=== PATIENT | female | born 1985 | race Two or more races ===

== ENCOUNTER 2024-02-14 22:02 | Observation (INO) | payer MEDICAID, SELFPAY ==
[2024-02-14 22:09] VITALS: BMI 35.3
[2024-02-14 22:23] VITALS: BP 111/63; PULSE 78; RESP 19; TEMP 36.6; O2SAT 95
--- NOTE | 2024-02-14 22:42 | XR_ITS ---
Examination: Complete OB ultrasound greater than 14 weeks Date and time of exam: February 14, 2024 at 11:51 PM Indications: Vaginal pressure and vaginal bleeding today Findings: Viable intrauterine single fetus with single amniotic sac presentation cephalic Cardiac motion 160 BPM Placenta posterior grade 1 Umbilical cord insertion seen Amniotic fluid index 7.9 cm spine maternal left Cervix 5.5 cm Ovaries obscured by the uterus. Composite estimated gestational age based on BPD, head circumference, abdominal circumference, femur length is 32 weeks 5 days Estimated weight 2017.9 g. Survey of intracranial anatomy, spinal anatomy, abdominal anatomy, four-chamber heart performed with no abnormalities identified. Impression: Viable intrauterine gestation cephalic presentation.
[2024-02-14 22:45] VITALS: BP 109/64; PULSE 80
[2024-02-14 23:00] VITALS: BP 107/66; PULSE 80
[2024-02-14 23:15] VITALS: BP 109/63; PULSE 78
[2024-02-14 23:30] VITALS: BP 101/60; PULSE 73
[2024-02-14 23:45] VITALS: BP 101/64
--- NOTE | 2024-02-15 01:20 | PRELIM_ITS ---
Obstetric ultrasound. February 14, 2024 2351 hours Clinical history: Bleeding and pressure Comparison : No prior study is available for comparison. Findings:There is a gravid uterus with a live fetus in cephalic presentation of mean gestational age 32 weeks and 5 days (by biometry). cardiac activity is present at a heart rate of 160 beats per minute. The placenta is posterior in location. T here is no evidence of placenta previa or retroplacental hemorrhage. Amniotic fluid is adequate (VIVI = 10.9 cm). Estimated weight is 2017.9 grams+/- 299 grams. Estimated due date by ultrasound is 04/05/2024. The cervical length measures 5.5 cm.The ovaries are not visualized/demonstrated due to la rge uterus on this examination. Impression:Gravid uterus with a single live fetus in cephalic present ation of mean gestational age 32 weeks 5 days.Other findings as described above. Report Electronicall y Signed By: Trent Hernadez 02/15/2024 1:20:11 AM [EST]
== END 2024-02-15 01:44 | disposition home or self-care (01) ==
PROVIDERS: Admitting Provider Student in an Organized Health Care Education/Training Program; PCP Student in an Organized Health Care Education/Training Program; Visit Provider Student in an Organized Health Care Education/Training Program
DX: O26.853 Spotting complicating pregnancy, third trimester (principal); O26.893 Other specified pregnancy related conditions, third trimester; R10.2 Pelvic and perineal pain; Z3A.30 30 weeks gestation of pregnancy
CPT/HCPCS: 59025; 59899; 76805; G0378

== ENCOUNTER 2024-02-25 01:09 | Observation (INO) | payer MEDICAID, SELFPAY ==
[2024-02-25 01:19] VITALS: BMI 35.5
--- NOTE | 2024-02-25 01:28 | PC.NURSE ---
Addendum entered by Muna Medeiros RN 02/25/24 02:26: No SVE ordered by Dr. Esposito. 02:20-NST reactive and frequent positive movement noted by pt. Pt. given discharge instructions and ordered to keep up with follow up appointment on 03/01/2024 with OB provider in [place]. Pt. further instructed to observe kick counts and to return to L&D if pt. notes decreased FM, vaginal bleeding, LOF, s/s of labor and s/s of preeclampsia. Pt. verbalized understanding, signed discharge instructions receipt and ambulated off of unit in stable condition in care of self. Addendum entered by Muna Medeiros RN 02/25/24 02:08: NST done from 00:52 to 01:30 Original Note: Dr. Esposito called and made aware of pt.'s arrival to L&D triage. 38 y/o at 32 weeks exactly today, c/o decreased movement since 20:00. Pt. reports intermittent movement after 20:00 only when pt. would illicit movement through maternal movement or drinking something cold. Pt. denies VB or LOF. Pt. denies med hx. Surgical hx of spondylolisthesis 2016, as per pt., requiring her to have a scheduled c/s as per her OB April 10. X 2, 2004 and 2008. Denies any OB complications in the past or this . Pt. taking PNV and baby aspirin as prescribed at home. Pt. reports pain 6/10 due to intermittent lower abdominal pressure which pt. has taken Tylenol 500mg PO at 18:[address] Esposito ordered if pt.'s NST is reactive, provide reassurance to pt. about +FM; pt. can be discharged home. POC discussed with pt., pt. verbalized understanding.
== END 2024-02-25 02:20 | disposition home or self-care (01) ==
PROVIDERS: Admitting Provider Obstetrics & Gynecology; Visit Provider Obstetrics & Gynecology
DX: O36.8130 Decreased fetal movements, third trimester, not applicable or unspecified (principal); Z3A.32 32 weeks gestation of pregnancy
CPT/HCPCS: 59025; 59899

== ENCOUNTER 2024-03-02 20:03 | Observation (INO) | payer MEDICAID, SELFPAY ==
[2024-03-02] VITALS (44 sets, daily range): BP systolic 113–118; BP diastolic 58–68; PULSE 65–99; O2SAT 92–100; BMI 35.5
[2024-03-02] MEDS: RINGERS LACTATED 1000 ML 1,000 ML 999 ML IV (20:36)
--- NOTE | 2024-03-02 20:44 | XR_ITS ---
Examination: Complete OB ultrasound greater than 14 weeks Date and time of exam: March 12, 2024 2158 hrs. Indications: Urinary retention today Findings: Viable intrauterine single fetus with single amniotic sac presentation cephalic Cardiac motion 141 BPM Placenta posterior grade 2 Umbilical cord insertion seen Amniotic fluid index 8.3 cm spine maternal left Cervix 2.1 cm Ovaries obscured by the uterus. Composite estimated gestational age based on BPD, head circumference, abdominal circumference, femur length is 34 weeks 0 days. Survey of intracranial anatomy, spinal anatomy, abdominal anatomy, four-chamber heart performed with no abnormalities identified. Estimated weight 2303.7 g Impression: Viable intrauterine gestation cephalic presentation Estimated gestational age 34 weeks 0 days.
--- NOTE | 2024-03-02 20:44 | XR_ITS ---
Examination: Retroperitoneal ultrasound, complete Technique: Multiple high resolution grayscale images of the retroperitoneum obtained, including kidneys and bladder. Exam date and time:March 12, 2024 2147 hrs. Indications: Urinary retention beginning 4:00 this afternoon Findings: Right kidney 11.7 x 4.8 x 5.7 cm renal cortex 1.8 cm Left kidney 10.7 x 5.6 x 5.4 cm in the cortex 1.6 cm No hydronephrosis or renal calculi Bladder not visualized Impression: No hydronephrosis or renal calculi
[2024-03-02] MEDS: BETAMET ACET/BETAMET NA PH (Celestone) 6 MG/ML VIAL 12 MG IM (20:58)
[2024-03-02 20:59] LABS: Lactate (Lactic Acid) 1.9 mMol/L (0.4-2.0)
[2024-03-02 21:00] LABS: Basophils % (Auto) 0 % (0-2.5); Eosinophils # (Auto) 0.1 Thou/mm3 (0.0-0.5); Eosinophils % (Auto) 0 % (0-10); Hematocrit 36.8 % (36.0-46.0); Hemoglobin 12.6 g/dL (12.0-16.0); Immature Granulocytes % (Auto) 0 % (0-0); Immature Granulocytes Auto 0.05 Thou/mm3 (0.00-0.00); Lymphocytes # (Auto) 2.8 Thou/mm3 (1.0-4.8); Lymphocytes % (Auto) 20 % (10-50); Mean Corpuscular HGB Conc 34.2 g/dl (31.0-37.0); Mean Corpuscular Hemoglobin 30.4 pg (25.0-35.0); Mean Corpuscular Volume 89 fL (80-100); Monocytes # (Auto) 0.6 Thou/mm3 (0.0-0.8); Monocytes % (Auto) 4 % (0-12); Neutrophils # (Auto) 10.6 Thou/mm3 (1.8-7.7); Neutrophils % (Auto) 75 % (37-80); Nucleated Red Blood Cell % 0 /100 WBC (0); Platelet Count 211 Thou/mm3 (140-440); RDW Standard Deviation 44.2 fL (36.4-46.3); Red Blood Count 4.14 Miln/mm3 (4.00-5.20); White Blood Count 14.1 Thou/mm3 (3.6-11.0)
[2024-03-02] MEDS: RINGERS LACTATED 1000 ML 1,000 ML 100 ML IV (21:09)
[2024-03-02 21:16] LABS: Collection Type, Urine Catheter
[2024-03-02 21:32] LABS: Alanine Aminotransferase 15 U/L (10-49); Albumin, Serum 4.3 gm/dL (3.5-5.0); Albumin/Globulin Ratio 1.4 (1.2-2.2); Alkaline Phosphatase 152 U/L (46-116); Anion Gap 14 (7-16); Aspartate Amino Transferase 21 U/L (0-34); BUN/Creatinine Ratio 13 Ratio (12-20); Bilirubin,Total 0.5 mg/dL (0.3-1.2); Blood Urea Nitrogen 9 mg/dL (9-23); Calcium 9.7 mg/dL (8.3-10.6); Calcium (Corrected) 9.7 mg/dL (8.5-10.1); Carbon Dioxide 17.4 mMol/L (20.0-31.0); Chloride 105 mMol/L (98-107); Creatinine (Component) 0.7 mg/dL (0.6-1.3); Estimated Creatinine Clearance 121.1 mL/min (>60); Glucose 82 mg/dL (74-106); Osmolality,Calculated 269 (275-295); Sodium 136 mMol/L (136-145); Total Protein 7.3 gm/dL (5.7-8.2); eGFR > 60 See Note
[2024-03-02 21:43] LABS: LDH (Lactate Dehydrogenase) 243 U/L (120-246); Uric Acid 4.3 mg/dL (3.1-7.8)
[2024-03-02 21:59] LABS: Fibrinogen 596 mg/dL (175-375); INR 1.1 (0.9-1.3); Partial Thromboplastin Time 27.7 Seconds (22.0-36.0); Prothrombin Time 11.6 Seconds (9.0-12.2)
[2024-03-02] MEDS: RINGERS LACTATED 1000 ML 1,000 ML 250 ML IV (22:05)
[2024-03-02 22:11] LABS: Bilirubin,Urine 1+ (Negative); Blood,Urine 3+ (Negative); Clarity,Urine Turbid (Clear/Hazy); Color,Urine Drk-Orange (Lt Yel-Yel); Glucose, Urine Negative (Negative); Ketones,Urine 4+ (Negative); Leukocyte Esterase,Urine Positive (Negative); Nitrite,Urine Positive (Negative); PH,Urine 6.5 (5.0-7.0); Protein,Urine 3+ (Neg - Trace); RBC,Urine 2117 /hpf (0-3); Specific Gravity,Urine 1.025 (1.001-1.035); Squamous Epithelial Cell,Urine 6 /hpf (0-5); WBC,Urine 1088 /hpf (0-5)
[2024-03-02] MEDS: cefTRIAXone 1,000 MG in SODIUM CHLORIDE 0.9% (P) 50 ML 100 MG IV (22:19)
[2024-03-02 22:35] LABS: Amphetamine/Metham Scrn,Ur OB Negative (Negative); Benzoylecgonine Screen, Ur OB Negative (Negative); Opiate Screen,Urine OB Negative (Negative); THC Screen,Urine OB Negative (Negative)
== END 2024-03-03 00:20 | disposition home or self-care (01) ==
PROVIDERS: Admitting Provider Obstetrics & Gynecology; Visit Provider Obstetrics & Gynecology
DX: O26.893 Other specified pregnancy related conditions, third trimester (principal); R33.9 Retention of urine, unspecified; Z3A.34 34 weeks gestation of pregnancy
CPT/HCPCS: 36415; 59025; 59899; 76770; 76805; 80053; 80307; 81001; 83605; 83615; 84550; 85025; 85384; 85610; 85730; 87077; 87086; 87186; 96372; J0696; J0702; J7050; J7120

== ENCOUNTER 2024-03-03 20:41 | Outpatient (CLI) | payer MEDICAID, SELFPAY ==
[2024-03-03 20:45] VITALS: BMI 35.3
[2024-03-03 20:46] VITALS: BP 108/60; PULSE 82
[2024-03-03 20:51] VITALS: RESP 16; TEMP 37.1; O2SAT 100
[2024-03-03] MEDS: BETAMET ACET/BETAMET NA PH (Celestone) 6 MG/ML VIAL 12 MG IM (21:10)
== END 2024-03-03 21:20 | disposition home or self-care (01) ==
LOC: S4S1 20:42 → S4SX 20:43
PROVIDERS: Referring Provider Obstetrics & Gynecology; Visit Provider Obstetrics & Gynecology
DX: Z34.83 Encounter for supervision of other normal pregnancy, third trimester (principal); Z36.9 Encounter for antenatal screening, unspecified; Z3A.33 33 weeks gestation of pregnancy
CPT/HCPCS: 59025; 96372; J0702